=== PATIENT | female | born 1945 | race Caucasian/White ===

== ENCOUNTER → 2017-06-23 | Outpatient (CLI) | payer MEDICARE, OTHER ==
[~2017-06-23] MED LIST: IBUP800T25 PO
--- NOTE | 2017-06-23 11:00 | RADRPT ---
PROCEDURE: US Lower extremity Venous. CLINICAL INDICATION: Left leg edema, pain TECHNIQUE: Multiple sonographic images of the left lower extremity deep venous system was obtained utilizing grayscale, color-flow, compressive sonography and doppler imaging with augmentation. The images were reviewed on a PACS workstation. COMPARISON: None. FINDINGS: There is normal compressibility and flow within the left common femoral, femoral, posterior tibial, peroneal and popliteal veins. RPTAT: AA IMPRESSION: No sonographic evidence for deep venous thrombosis. .Milton Ruiz MD, MD Date Time Electronically viewed and signed by .Milton Ruiz MD, on 06/23/2017 10:59 .S/
== END | disposition home or self-care (01) ==
LOC: VAS 09:58
PROVIDERS: ATTEND Internal Medicine
DX: M79.662 Pain in left lower leg (principal)
CPT/HCPCS: 93971

== ENCOUNTER 2017-07-23 16:59 | Emergency (ER) | payer MEDICARE, OTHER ==
[~2017-07-23] VITALS: Wt 70.0 kg
--- NOTE | 2017-07-23 17:34 | ERD ---
ER Documentation Chief Complaint Chief Complaint USED NEW CREAM, NOW HAS BELOW EYES ITCHING, REDNESS HPI 71 y/o female, without history of food or drugs allergies, presents to the ED complaining of sudden onset of erythematous and pruritic rash in her face. The rash started yesterday and is progressively getting worse. The patient used orange oil and vitamin E oil on her face 2 days ago. Denies lip swelling, difficulty breathing or cough. No treatment attempted at this time. ROS All systems reviewed and are negative except as per history of present illness. Medications Home Meds Active Scripts Triamcinolone Acetonide (Triamcinolone Acetonide) 0.1% - 15 Gm Cream.gm., 1 APPLIC TOP BID, #1 TUB Prov:JUSTO OCASIO MD 07/23/17 Prednisone* (Prednisone*) 20 Mg Tab, 20 MG PO DAILY for 3 Days, TAB Prov:JUSTO OCASIO MD 07/23/17 Ibuprofen* (Motrin*) 800 Mg Tab, 800 MG PO Q6 Y for PAIN LEVEL 1-5, #30 TAB Prov:JULIEN CONNELL MD 04/22/16 Allergies Allergies: Coded Allergies: No Known Allergy (Unverified , 04/20/16) PMhx/Soc History of Surgery: No Anesthesia Reaction: No Hx Neurological Disorder: No Hx Respiratory Disorders: No Hx Cardiac Disorders: No Hx Psychiatric Problems: No Hx Miscellaneous Medical Probl: No Hx Alcohol Use: No Hx Substance Use: No Hx Tobacco Use: No Physical Exam Vitals Vital Signs Date Time Temp Pulse Resp B/P Pulse Ox O2 Delivery O2 Flow Rate FiO2 07/23/17 17:02 98.1 78 18 138/64 99 Physical Exam Const: [] Head: Atraumatic Eyes: Normal Conjunctiva ENT: Normal External Ears, Nose and Mouth. Neck: Full range of motion..~ No meningismus. Resp: Clear to auscultation bilaterally Cardio: Regular rate and rhythm, no murmurs SKIN: Face: Well defined, raised erythematous rash in the face and neck Procedures/MDM 71 y/o female, with new and acute onset of facial rash after new cream use. Differential includes angioedema, cellulitis, eczema, lupus. Physical exam and clinical presentation consistent with allergic urticaria without angioedema. Patient hemodynamically stable will be DC home with a prescription for oral prednisone for 3 days and mild-mod topical steroid for 5 days; contact precautions discussed with patient. Recommend a F/U with her PCP in 2-4 days Departure Diagnosis: Primary Impression: Allergic urticaria Condition: Stable Additional Instructions: Have prescriptions filled and follow precisely the directions on the label. Follow-up with primary care provider during the next 4 days and bring all the information and medications prescribed. If illness has not improved in 2 days, then make an appointment with primary care provider. If the provider is unavailable, return to the Emergency Department as needed. JUSTO OCASIO MD Jul 23, 2017 17:34
[2017-07-23] MEDS ORDERED: TRIA15CR55 TOP (17:37)
[2017-07-23] MEDS ORDERED: PRED20TA PO (17:37)
== END 2017-07-23 17:56 | disposition home or self-care (01) ==
LOC: FTE 16:59
DX: L50.0 Allergic urticaria (principal)
CPT/HCPCS: 99284